=== PATIENT | male | born 1985 | race African-American/Black ===

== ENCOUNTER 2017-10-10 02:51 | Emergency (ER) | payer SELFPAY ==
[~2017-10-10] VITALS: Ht 180.3 cm; Wt 71.0 kg
[~2017-10-10 02:51] MED LIST: CYCL-36 PO; IBUP-238 PO
[2017-10-10 02:52] VITALS: BP 134/83; PULSE 90; RESP 16; TEMP 97.9; O2SAT 99
--- NOTE | 2017-10-10 03:10 | PD ---
HPI Chief Complaint: Cold / Flu Symptoms Time Seen by Provider: 03:02 Travel History International Travel<30 days: No Contact w/Intl Traveler<30days: No Traveled to known affect area: No History of Present Illness HPI 31-year-old black male presents emergency Department with complaints of shortness of breath and pain in his chest. He states that he's been having difficulty breathing for the last several weeks. Symptoms have been worse over last 4 days. States the pain is worse when he takes a deep breath. He has some pleuritic chest wall pain. He denies any recent trauma or cold symptoms. He does admit to smoking cigarettes and coughing at times. Also does smoke marijuana. Denies any asthma. No fever, chills, earache, sore throat, nausea, vomiting, abdominal pain or diarrhea. PFSH Past Medical History ADD: Yes Immunizations Current: Yes Tetanus Vaccination: < 5 Years Past Surgical History Surgical History: No Previous Surgery Social History Alcohol Use: Yes (3 BEERS DAILY) Tobacco Use: Yes (1 PPD) Substance Use: Yes (marijuana) Allergies-Medications (Allergen,Severity, Reaction): Coded Allergies: No Known Allergies (Verified Adverse Reaction, Unknown, 10/10/17) Reported Meds & Prescriptions Reported Meds & Active Scripts Active Proair Hfa 8.5 GM Inh (Albuterol Sulfate) 90 Mcg/Act Aer 2 Puff INH Q4-6H PRN 108 mcg/actuation Prednisone 20 Mg Tab 20 Mg PO BID 5 Days Review of Systems General / Constitutional: No: Fever Eyes: No: Visual changes HENT: No: Headaches Cardiovascular: Positive: Chest Pain or Discomfort Respiratory: Positive: Cough, Shortness of Breath, Pleuritic Pain, No: Wheezing Gastrointestinal: No: Nausea, Vomiting, Diarrhea, Abdominal Pain Genitourinary: No: Dysuria Musculoskeletal: No: Pain Skin: No Rash Neurologic: No: Weakness Psychiatric: No: Depression Endocrine: No: Polydipsia Hematologic/Lymphatic: No: Easy Bruising Physical Exam Narrative GENERAL: Well-developed, well-nourished in no acute distress. Nontoxic appearing. HEAD: Normocephalic, atraumatic. EYES: Pupils equal round and reactive. Extraocular motions intact. No scleral icterus. No injection or drainage. ENT: TMs clear without erythema. The external auditory canals clear. Nose: clear . Posterior pharynx is pink and moist. No tonsillar edema or exudate. Uvula midline. Airway patent. NECK: Trachea midline.Supple, nontender, moves head freely. No central bony tenderness or spasm. CARDIOVASCULAR: Regular rate and rhythm without murmurs, gallops, or rubs. RESPIRATORY: Clear to auscultation. Breath sounds equal bilaterally. No wheezes , rales, or rhonchi. GASTROINTESTINAL: Abdomen soft, non-tender, nondistended. No hepato-splenomegaly , or palpable masses. No guarding. EXTREMITIES: No clubbing, cyanosis, or edema. No joint tenderness, effusion, or edema noted. BACK: Nontender without deformity or crepitance. No flank tenderness. Data Data Last Documented VS Vital Signs Date Time Temp Pulse Resp B/P (MAP) Pulse Ox O2 Delivery O2 Flow Rate FiO2 10/10/17 03:03 18 10/10/17 02:52 97.9 90 134/83 (100) 99 Room Air Orders Orders Chest, Single Ap (10/10/17 03:06) MDM Medical Decision Making Medical Screen Exam Complete: Yes Emergency Medical Condition: Yes Medical Record Reviewed: Yes Interpretation(s) Chest x-ray: Negative for pneumothorax. No acute pulmonary process. Differential Diagnosis Differential diagnoses: Pneumothorax, pleurisy, bronchitis, asthma, reactive airway disease Narrative Course X-ray the chest is unremarkable. Patient will be started on prednisone and albuterol. He is advised to stop smoking. This is pleurisy Diagnosis Primary Impression: Pleurisy Patient Instructions: General Instructions Additional Instructions: Rest. Stop smoking. (Smoking cessation) Increase fluids. Tylenol and Advil. prednisone, and albuterol. Followup with your DrIbeth in one week. Return to the ER for any problems. Med/Other Pt SpecificInfo: Prescription(s) given Scripts Albuterol 8.5 GM Inh (Proair Hfa 8.5 GM Inh) 90 Mcg/Act Aer 2 PUFF INH Q4-6H Y for SHORTNESS OF BREATH, #1 INHALER 0 Refills 108 mcg/actuation Prov: Verónica Allen MD 10/10/17 Prednisone (Prednisone) 20 Mg Tab 20 MG PO BID for 5 Days, #10 TAB 0 Refills Prov: Verónica Allen MD 10/10/17 Disposition: 01 DISCHARGE HOME Condition: Stable Tolu Smith Oct 10, 2017 03:10
[2017-10-10] MEDS ORDERED: PRED20 PO (03:11)
[2017-10-10] MEDS ORDERED: ALBUAER3 INH (03:11)
--- NOTE | 2017-10-10 03:41 | RADRPT ---
EXAM DATE/TIME: 10/10/2017 03:21 [facility] COMPARISON: No previous studies available for comparison. INDICATIONS : Cold symptoms for three weeks with cough and now bilateral chest pain. MEDICAL HISTORY : None. SURGICAL HISTORY : None. ENCOUNTER: Initial ACUITY: 3 weeks PAIN SCORE: 5/10 LOCATION: Bilateral chest FINDINGS: Portable AP view of the chest demonstrates a normal-sized cardiac silhouette. No effusion, consolidat ion, or pneumothorax is visualized. The bones and soft tissues demonstrate no acute abnormality. CONCLUSION: No acute cardiopulmonary abnormality is identified. Colin Cannon MD on October 10, 2017 at 3:40 Board Certified Radiologist. This report was verified electronically.
[2017-10-10 03:55] VITALS: BP 131/80; PULSE 88; RESP 18; O2SAT 100
== END 2017-10-10 03:59 | disposition home or self-care (01) ==
LOC: NEPD 02:51
DX: R09.1 Pleurisy (principal); R05 Cough; F17.200 Nicotine dependence, unspecified, uncomplicated; Z86.59 Personal history of other mental and behavioral disorders
CPT/HCPCS: 71010; 99284